=== PATIENT | male | born 1965 ===

== ENCOUNTER 2017-11-27 12:19 | Outpatient (CLI) | payer OTHER ==
[~2017-11-27 12:19] MED LIST: CHOLESTYRAMINE P4 GM PO; [UNRECOGNIZED DRUG - OTHER] BC
== END 2017-11-27 12:27 | disposition home or self-care (01) ==
LOC: LAB 12:19
DX: R74.8 Abnormal levels of other serum enzymes (principal); E78.4 Other hyperlipidemia

== ENCOUNTER 2018-03-11 12:00 | Outpatient (CLI) | payer OTHER | END 2018-03-11 12:20 | disposition home or self-care (01) | LOC: RAD 12:00 | DX: S33.5XXA Sprain of ligaments of lumbar spine, initial encounter (principal) ==

== ENCOUNTER → 2018-03-11 | Outpatient (CLI) | payer OTHER ==
[~2018-03-11] MED LIST changes: +FLECTOR1 EACH TD; +NORFLEX100MG PO
== END | disposition home or self-care (01) ==
LOC: LAB 09:52
DX: E78.1 Pure hyperglyceridemia (principal); K76.0 Fatty (change of) liver, not elsewhere classified

== ENCOUNTER 2021-01-07 15:30 | Outpatient (CLI) | payer OTHER ==
[~2021-01-07 15:30] MED LIST changes: +SKELAXIN800 MG PO
== END 2021-01-07 15:42 | disposition home or self-care (01) ==
LOC: RAD 15:30
PROVIDERS: ATTEND Physical Medicine & Rehabilitation
DX: M25.761 Osteophyte, right knee (principal); M17.0 Bilateral primary osteoarthritis of knee

== ENCOUNTER 2021-03-04 14:47 | Outpatient (CLI) | payer OTHER | END 2021-03-04 14:56 | disposition home or self-care (01) | LOC: RAD 14:47 | PROVIDERS: ATTEND Physical Medicine & Rehabilitation | DX: M54.2 Cervicalgia (principal) ==

== ENCOUNTER 2025-05-08 08:38 | Outpatient (CLI) | payer OTHER ==
[2025-05-08 10:09] LABS: BASO % 0.5 % (0.1-1.2); EOS # 0.08 (0.04-0.54); EOS % 1.4 % (0.7-7.0); LYMPH # 1.73 (1.18-3.74); LYMPH % 31.2 % (19.3-53.1); MEAN PLATELET VOLUME 10.50 fl (9.4-12.4); MONO # 0.53 (0.24-0.82); MONO % 9.6 % (4.7-12.5); NEUT # 3.16 (1.56-6.13); NEUT % 57.1 % (34.0-71.1); RED CELL DISTRIBUTION WIDTH 13.4 % (11.6-14.4)
[2025-05-08 11:17] LABS: ALT/SGPT 39.0 U/L (12-78); AST/SGOT 22.0 U/L (15-37); BILIRUBIN TOTAL 0.58 mg/dL (0.3-1.2); BUN CREA RATIO 18.0 (7.0-25.0); CREATININE SERUM 0.74 mg/dL (0.70-1.30); GFR 108.63; GLOBULINA 3.3 G/DL (2.4-3.5); GLUCOSE FASTING 96.0 mg/dL (65-100); OSMOLALITY SERUM 283.0 MOSM/KG (275-295)
== END 2025-05-08 09:11 | disposition home or self-care (01) ==
LOC: LAB 08:38
PROVIDERS: ATTEND Internal Medicine Gastroenterology
DX: K60.0 Acute anal fissure (principal); Z86.0101 Personal history of adenomatous and serrated colon polyps; Z80.0 Family history of malignant neoplasm of digestive organs

== ENCOUNTER 2025-05-08 08:58 | Outpatient (CLI) | payer OTHER | END 2025-05-08 09:02 | disposition home or self-care (01) | LOC: SONOGRAMA 08:58 | PROVIDERS: ATTEND Internal Medicine Gastroenterology | DX: K60.0 Acute anal fissure (principal); Z86.0101 Personal history of adenomatous and serrated colon polyps; Z80.0 Family history of malignant neoplasm of digestive organs ==

== ENCOUNTER 2025-05-09 10:05 | Outpatient (CLI) | payer OTHER | END 2025-05-09 10:26 | disposition home or self-care (01) | LOC: MRI 10:05 | PROVIDERS: ATTEND Internal Medicine Gastroenterology | DX: K60.0 Acute anal fissure (principal); Z86.0101 Personal history of adenomatous and serrated colon polyps; Z80.0 Family history of malignant neoplasm of digestive organs | CPT/HCPCS: 72197 ==